=== PATIENT | male | born 1980 | race Two or more races ===

== ENCOUNTER 2016-11-26 05:06 | Day surgery (SDC) | payer OTHER ==
[2016-11-19 11:48] VITALS: BMI 35.2
--- NOTE | 2016-11-26 09:07 | HP ---
[facility] - Chief Complaint Chief Complaint: left knee pain - Past Medical History Allergies/Adverse Reactions: Allergies Allergy/AdvReac Type Severity Reaction Status Date / Time No Known Drug Allergies Allergy Verified 11/26/16 09:01 - Current Medications Current Medications: Home Medications Medication Instructions Recorded Hydrocodone/Acetaminophen [Mccleary 1 each PO Q6H PRN #40 tablet MDD 4 11/26/16 5-325 Tablet] Oxycodone HCl/Acetaminophen 1 - 2 tab PO Q6H #50 tab MDD 8 11/26/16 [Percocet 5-325 mg Tablet -] Satellite Physical Exam - Physical Examination Vital Signs: Vital Signs Period Temp Pulse Resp BP Sys/Edmondson Pulse Ox Last 24 Hr 97.9 F 61 18 134/91 General Appearance: Well Nourished, Well Developed, Alert & Oriented x3 ENT: Clear Lung: Normal air movement Heart: Regular rate & rhythm Extremities: Other (left knee- + swelling, + ttp, decr rom, + john, + ant draw, + pivot, nvi MRi + acl rupture) Neurological: Intact, Alert, Oriented Satellite Impression/Plan - Impression/Plan Impression: left knee acl rupture Operative Procedure: left knee arthroscopy with ACL reconstruction using allograft Date to be Performed: 11/26/16
[2016-11-26] MEDS ORDERED: ROPIVACAINE HCL 0.5% 30ML VIAL ONE (10:02)
[2016-11-26] MEDS ORDERED: MIDAZOLAM HCL 2 MG/2 ML SINGLE DOSE VIAL ONE ×2 (10:04)
[2016-11-26] MEDS ORDERED: ACETAMINOPHEN INJECTION 100 ML IVPB ONE (10:21)
[2016-11-26] MEDS ORDERED: DEXAMETHASONE SOD PHOSPHATE 4 MG/1 ML VIAL ONE (10:52)
[2016-11-26] MEDS ORDERED: ceFAZolin SODIUM 1 GM VIAL ONE (10:59)
[2016-11-26] MEDS ORDERED: ceFAZolin SODIUM 1 GM VIAL IVPB ONE (11:00)
[2016-11-26] MEDS ORDERED: ONDANSETRON 4 MG/2 ML VIAL ONE (11:57)
--- NOTE | 2016-11-26 12:11 | OP ---
Operative Note - Note: Operative Date: 11/26/16 ([facility]) Pre-Operative Diagnosis: left knee internal derangement Operation: left knee arthroscopy with ACL reconstruction using allograft, PLM, PMM Implants: arthrex graftlink Post-Operative Diagnosis: Same as Pre-op Surgeon: Steve Sutton Business Intelligence Analyst: Manuel Kirby Anesthesiologist/MATE SHIP: Ronald Pfeiffer Anesthesia: General, Local Specimens Removed: shavings, mensicus Estimated Blood Loss (mls): 10 Operative Report Dictated: Yes
[2016-11-26] MEDS ORDERED: PROMETHAZINE HCL 25 MG/1 ML VIAL IVPUSH PRN (12:16)
[2016-11-26] MEDS ORDERED: ONDANSETRON 4 MG/2 ML VIAL IVPUSH PRN (12:16)
[2016-11-26] MEDS ORDERED: oxyCODONE HCL 5 MG TABLET PO PRN (12:16)
[2016-11-26 14:01] VITALS: TEMP 98.4
[2016-11-26 15:14] VITALS: BP 129/80; PULSE 90
--- NOTE | 2016-11-27 16:32 | PATH ---
Surgical Pathology Report Patient Name: KELLI AUSTIN [facility]. Rec. #: [id number] /Age/Gender: 1980 (Age: 36) / M Account: [id number] Location: [facility] SURGICAL Taken: 11/26/2016 Received: 11/26/2016 Reported: 11/27/2016 Physicians: Steve Sutton M.D. Specimen(s) Received LEFT KNEE SHAVINGS Clinical History Left knee torn ACL Final Diagnosis SOFT TISSUE, LEFT KNEE, ARTHROSCOPIC SHAVINGS: SYNOVIUM WITH MILD CHRONIC INFLAMMATION, FIBROCARTILAGE WITH MYXOHYALINE DEGENERATION. FRAGMENTS OF UNREMARKABLE BONE. Electronically Signed New Cardoza M.D. Gross Description Received in formalin, labeled "left knee shavings" is a 5.5 x 4.6 x 0.7 cm aggregate of tompkins-yellow soft tissue fragments. A renewals representative portion is submitted in one cassette. 11/26/201611/26/2016
--- NOTE | 2016-11-27 20:09 | OP ---
DATE OF OPERATION: 11/26/2016 PREOPERATIVE DIAGNOSIS: Left anterior cruciate ligament tear. POSTOPERATIVE DIAGNOSIS: Left anterior cruciate ligament tear, medial and lateral meniscus tears. PROCEDURE: Left anterior cruciate ligament reconstruction with allograft and partial medial and lateral meniscectomies. SURGICAL ATTENDING: Steve Sutton MD MACHINE BENDER: LINDA Plasencia ANESTHESIA: Regional and general. CLOSURE: A GraftLink with appropriate fixation and 3-0 nylon for skin. ESTIMATED BLOOD LOSS: Negligible. COMPLICATIONS: None. CONDITION: To recovery room in stable condition. DESCRIPTION OF OPERATIVE PROCEDURE: Patient taken to the operating room on November 26, 2016. Regional and general anesthesia were administered by the anesthesiologist. IV Kefzol was administered prophylactically prior to the case. The left lower extremity was prepped and draped in the usual sterile fashion. The superomedial and inferomedial and lateral portals were made with 15 blade followed by a blunt trocar. Outflow was superomedially, scope was through inferolaterally and working part of its way inferomedially. The scope was placed up into the pouch which was visualized to be clean. The medial and lateral gutters were visualized to be clean. The undersurface of the patella and trochlea visualized to be intact. With valgus stress on the knee, the medial compartment was entered. The medial meniscus was found to have a "bucket handle" tear displaced anteriorly with multiple other tears and its displaced fragment, making it unable to be fixated. A more medial portal was used, and the entire bucket was pulled out of the knee, biting it in the front and in the back, delivering the whole displaced piece in total. The residual meniscus was balanced for stability. Medial femoral condyle was run and found to be intact as was the medial tibial plateau. In the figure-of-4 position, lateral compartment was entered. Lateral meniscus had a large flap tear flipped up laterally. This was debrided back to smooth and stable meniscal tissue using a meniscal biter and arthroscopic shaver. Lateral femoral condyle was run and found to be intact as was the lateral tibial plateau. At 90 degrees, the ACL was visualized to be completely torn. Its stump was debrided using the ArthroCare and a shaver. A notchplasty was then performed, gaining sufficient width and height to perform the procedure. Using an [id number] guide and an inside-out FlipCutter, a 10-mm tunnel was done in the posterior aspect of the notch laterally. All bone fragments were removed. A stick was placed down the tunnel to deliver a shuttle suture into the knee which exited the inferolateral portal. The tibial guide was used to drill the FlipCutter from the anteromedial proximal tibia into the knee just anterior to the PCL. The 10-mm FlipCutter was then used to retrograde a 10-mm tunnel in the tibia. All bone fragments were removed. The suture stick was placed up the tunnel and delivered the shuttle suture into the knee. These shuttle sutures were then used to shuttle the GraftLink into the knee. First, the femoral one was pulled into the knee until the button hooked on the femoral cortex. The toggle sutures were then used to toggle the graft up into the knee to the appropriate depth. The sutures were then pulled down the tibial tunnel. A button was deployed and the toggle sutures were then used to tension the graft on the tibial side; this was done in extension, and then it was re-toggled both on the femoral and the tibial side. The knee was taken through a range of motion and found to have excellent, full range of motion with good crossing of the ACL over the PCL and no impingement on the notch. The sutures were cut snug. The knee was thoroughly irrigated to remove all fragments of bone and then the fluid was drained. The sutures were then closed using 3-0 nylon sterile pressure dressing, and a knee immobilizer was applied. Patient awakened from anesthesia and transferred to recovery in stable condition. No complications. Estimated blood loss negligible. Dee [id number]
== END 2016-11-26 15:14 | disposition home or self-care (01) ==
LOC: JASU-SURG 05:06
PROVIDERS: ATTEND Orthopaedic Surgery
PROC: 0MQP4ZZ Repair Left Knee Bursa and Ligament, Percutaneous Endoscopic Approach (ICD-10-PCS; 2016-11-26)
PROC: 0SBD4ZZ Excision of Left Knee Joint, Percutaneous Endoscopic Approach (ICD-10-PCS; 2016-11-26)
PROC: 0MUP4JZ Supplement Left Knee Bursa and Ligament with Synthetic Substitute, Percutaneous Endoscopic Approach (ICD-10-PCS; principal; 2016-11-26 09:20)
DX: S83.512A Sprain of anterior cruciate ligament of left knee, initial encounter (principal); S83.212A Bucket-handle tear of medial meniscus, current injury, left knee, initial encounter; S83.282A Other tear of lateral meniscus, current injury, left knee, initial encounter; X58.XXXA Exposure to other specified factors, initial encounter; Y93.9 Activity, unspecified; Y92.9 Unspecified place or not applicable; Y99.9 Unspecified external cause status
CPT/HCPCS: 88304-TC; 94760; 97116-GP